=== PATIENT | female | born 1970 | race Caucasian/White ===

== ENCOUNTER 2019-03-15 11:59 | Emergency (ER) | payer OTHER ==
[~2019-03-15] VITALS: Ht 160 cm; Wt 74.4 kg
[2019-03-15 12:23] VITALS: Ht 160 cm; Wt 74.4 kg
[2019-03-15 14:08] VITALS: BP 113/68
== END 2019-03-15 14:08 | disposition home or self-care (01) ==
LOC: ED 11:59
DX: S63.613A Unspecified sprain of left middle finger, initial encounter (principal); X50.0XXA Overexertion from strenuous movement or load, initial encounter; Y93.89 Activity, other specified; Y92.89 Other specified places as the place of occurrence of the external cause; Y99.8 Other external cause status

== ENCOUNTER 2020-02-27 14:57 | Emergency (ER) | payer OTHER ==
[~2020-02-27] VITALS: Ht 165.1 cm; Wt 76.2 kg
[2020-02-27 15:18] VITALS: Ht 165.1 cm; Wt 76.2 kg
[2020-02-27 16:36] VITALS: BP 119/74
== END 2020-02-27 16:36 | disposition home or self-care (01) ==
LOC: ED 14:57
DX: H60.501 Unspecified acute noninfective otitis externa, right ear (principal)